=== PATIENT | female | born 1980 | race Caucasian/White ===

== ENCOUNTER → 2016-08-23 | Outpatient (CLI) | payer BC ==
[2016-08-23 14:19] LABS: URINE APPEARANCE CLEAR (CLEAR); URINE BILIRUBIN NEG (NEG); URINE COLOR YELLOW; URINE NITRITE NEG (NEG); URINE PH 6.5 (4.5-7.5); URINE SPECIFIC GRAVITY 1.011 (1.000-1.030); UROBILINOGEN NEG (NEG)
[2016-08-23 14:34] LABS: MANUAL MICROSCOPIC REQUIRED? NO; REVIEW REQ? NO
== END | disposition home or self-care (01) ==
LOC: C.LABSPEC 13:51
PROVIDERS: ATTEND Obstetrics & Gynecology
DX: Z34.01 Encounter for supervision of normal first pregnancy, first trimester (principal)

== ENCOUNTER → 2016-08-29 | Outpatient (CLI) | payer BC ==
[~2016-08-29] MED LIST: CLR10 PO; PRENTAB26 PO
[2016-08-30 22:25] LABS: CHLAMYDIA TRACH RNA*** NOT DETECTED (NOT DETECTED); GC (NEIS GONORRHOEAE)RNA** NOT DETECTED (NOT DETECTED)
== END | disposition home or self-care (01) ==
LOC: C.LABSPEC 11:24
PROVIDERS: ATTEND Obstetrics & Gynecology
DX: Z34.01 Encounter for supervision of normal first pregnancy, first trimester (principal)

== ENCOUNTER → 2016-10-24 | Outpatient (CLI) | payer BC ==
[~2016-10-24] MED LIST changes: +DOCU-94 PO; +ELET20TA PO; +IBUP-103 PO; +OXYC-57 PO
[2016-10-24 19:12] LABS: GTGD 50 Grams
== END | disposition home or self-care (01) ==
LOC: C.LAB1850 14:49
PROVIDERS: ATTEND Obstetrics & Gynecology
DX: Z34.02 Encounter for supervision of normal first pregnancy, second trimester (principal)

== ENCOUNTER → 2017-01-19 | Outpatient (CLI) | payer BC ==
[2017-01-19 14:52] LABS: URINE APPEARANCE CLEAR (CLEAR); URINE BILIRUBIN NEG (NEG); URINE COLOR YELLOW; URINE NITRITE NEG (NEG); URINE SPECIFIC GRAVITY 1.014 (1.000-1.030); UROBILINOGEN NEG (NEG)
[2017-01-19 15:13] LABS: MANUAL MICROSCOPIC REQUIRED? NO; REVIEW REQ? NO
== END | disposition home or self-care (01) ==
LOC: C.LABSPEC 13:49
PROVIDERS: ATTEND Obstetrics & Gynecology
DX: Z34.02 Encounter for supervision of normal first pregnancy, second trimester (principal)

== ENCOUNTER → 2017-03-14 | Outpatient (CLI) | payer BC | END | disposition home or self-care (01) | LOC: C.LABSPEC 15:47 | PROVIDERS: ATTEND Obstetrics & Gynecology | DX: O09.513 Supervision of elderly primigravida, third trimester (principal); Z3A.00 Weeks of gestation of pregnancy not specified ==

== ENCOUNTER 2017-04-12 21:47 | Inpatient (IN) | payer BC ==
[~2017-04-12] VITALS: Ht 162.6 cm; Wt 102.3 kg
[2017-04-12] MEDS ORDERED: NURSING VERBAL MED ORDER ONE (22:45)
[2017-04-12 23:14] LABS: HEMATOCRIT 35.6 % (37-47); MEAN CELL VOLUME 92.5 fL (80-100); MEAN CORPUSCULAR HEMOGLOBIN 31.2 pg (25-34); MEAN CORPUSCULAR HGB CONC 33.7 g/dl (32-36); MEAN PLATELET VOLUME 10.4 fL (7.4-10.4); PLATELET COUNT 311 K/uL (130-400); RED BLOOD COUNT 3.85 M/uL (4.2-5.4); WHITE BLOOD COUNT 12.15 K/uL (4.8-10.8)
[2017-04-12] MEDS ORDERED: PRENTAB26 PO (23:20)
[2017-04-12] MEDS ORDERED: CLR10 PO (23:20)
[2017-04-12 23:24] VITALS: Ht 162.6 cm; Wt 102.3 kg
[2017-04-12] MEDS ORDERED: LACTATED RINGER'S 1000ML 500 ML IV PRN (23:35)
[2017-04-12] MEDS ORDERED: OXYTOCIN 30 UNITS/500ML NSS IV PRN (23:45)
[2017-04-13] MEDS: MISOPROSTOLTAB 50 MCG TAB PO PRN ×2 (00:08→05:19)
[2017-04-13] MEDS: LACTATED RINGER'S 1000ML 1,000 ML IV SCH ×4 (07:26→21:55)
[2017-04-13] MEDS ORDERED: BUPIVACAINE 0.25% 30 ML VIAL ONE (07:48)
[2017-04-13] MEDS ORDERED: EpHEDrine SULFATE INJ 50 MG/ML AMP ONE (07:48)
[2017-04-13] MEDS ORDERED: FENTANYL 2MCG/ML ROPIV 1.25MG/ML 100ML BAG EPI ONE (07:48)
[2017-04-13] MEDS ORDERED: FENTANYL CITRATE INJ 50 MCG/1 ML 2 ML VIAL ONE ×2 (07:49→21:44)
[2017-04-13] MEDS ORDERED: LACTATED RINGER'S 1000ML 500 ML IV PRN ×3 (09:22→23:07)
[2017-04-13] MEDS ORDERED: OXYTOCIN 30 UNITS/500ML NSS IV PRN (09:30)
[2017-04-13] MEDS ORDERED: NALOXONE HCL INJ 1 MG in SODIUM CHLORIDE 0.9% 1000ML 1,000 ML IV PRN ×8 (15:12→23:07)
[2017-04-13] MEDS ORDERED: EpHEDrine SULFATE INJ 50 MG/ML AMP IV PRN ×2 (15:15→23:15)
[2017-04-13] MEDS ORDERED: PROMETHAZINE HCL INJ 25 MG in SODIUM CHLORIDE 0.9% 50ML 50 ML IV PRN ×2 (15:15→23:15)
[2017-04-13] MEDS ORDERED: NALOXONE HCL INJ 0.4 MG/1 ML VIAL/CARP IV PRN (15:15)
[2017-04-13] MEDS ORDERED: ONDANSETRON INJ 2 MG/ML 2 ML VIAL IV PRN ×2 (15:15→23:15)
[2017-04-13] MEDS ORDERED: NALBUPHINE HCL INJ 10 MG/ML AMP IV PRN ×2 (15:15→23:15)
[2017-04-13] MEDS ORDERED: DiphenhydrAMINE HCL 50 MG/ML VIAL IV PRN ×2 (15:15→23:15)
[2017-04-13] MEDS: FENTANYL 2MCG/ML ROPIV 1.25MG/ML 100ML BAG EPI PRN ×2 (15:35→16:44)
[2017-04-13] MEDS ORDERED: LACTATED RINGER'S 1000ML 1,000 ML IV SCH ×2 (21:34→23:13)
[2017-04-13] MEDS ORDERED: CITRIC ACID/SODIUM CITRATE 15 ML UDC ONE (21:37)
[2017-04-13] MEDS ORDERED: LIDOCAINE/EPINEPHRINE 2% 1:200,000 20 ML SDV ONE (21:44)
[2017-04-13] MEDS ORDERED: OXYTOCIN INJ 10 UNITS/ML VIAL ONE ×2 (21:44→22:47)
[2017-04-13] MEDS ORDERED: CITRIC ACID/SODIUM CITRATE 15 ML UDC PO ONE (21:45)
[2017-04-13] MEDS ORDERED: CEFAZOLIN IV 3,000 MG in DEXTROSE 5% 50ML 50 ML IV ONE (22:00)
[2017-04-13] MEDS ORDERED: PHENYLEPHRINE 100MCG/ML 5ML SYR ONE (22:23)
[2017-04-13] MEDS ORDERED: METHYLERGONOVINE MALEATE 0.2 MG/ML AMP ONE (22:24)
[2017-04-13] MEDS ORDERED: MORPHINE SULFATE PF 2MG/2ML SYR ONE (22:41)
[2017-04-13] MEDS ORDERED: ONDANSETRON INJ 2 MG/ML 2 ML VIAL ONE ×2 (22:44)
[2017-04-13] MEDS ORDERED: DEXAMETHASONE SOD INJ 4 MG/ML VIAL ONE (22:45)
[2017-04-13] MEDS ORDERED: SODIUM CHLORIDE 0.9% 1000ML 1,000 ML IV PRN (23:07)
[2017-04-13] MEDS ORDERED: NALOXONE HCL INJ 0.08 MG in SYRINGE 1.8 ML IV PRN (23:07)
[2017-04-13] MEDS ORDERED: OXYTOCIN INJ 20 UNITS in LACTATED RINGER'S 1000ML 1,000 ML IV SCH (23:13)
--- NOTE | 2017-04-13 23:13 | Anesthesia Procedure Note ---
Anesthesia Epidural Removal Nt Date & Time Apr 13, 2017 at 23:12 Notes Mental Status: alert / awake / arousable, participated in evaluation Nausea / Vomiting: adequately controlled Pain: adequately controlled Airway Patency, RR, SpO2: stable & adequate BP & HR: stable & adequate Hydration State: stable & adequate Neuraxial Anesthesia: was administered Anesthetic Complications: no major complications apparent, pt satisfied with anesthetic care Epidural: removed without complications, with tip intact
--- NOTE | 2017-04-13 23:13 | Anesthesiology Progress Note ---
Anesthesia Post Op Note Date & Time Apr 13, 2017 at 23:13 Notes Mental Status: alert / awake / arousable, participated in evaluation Pt Amnestic to Procedure: No Nausea / Vomiting: adequately controlled Pain: adequately controlled Airway Patency, RR, SpO2: stable & adequate BP & HR: stable & adequate Hydration State: stable & adequate Neuraxial Anesthesia: was administered, sensory block is resolving Anesthetic Complications: no major complications apparent
--- NOTE | 2017-04-13 23:13 | [facility] Operative Report ---
Operative Report Operative Date Apr 13, 2017. Pre-Operative Diagnosis 1. 40+wks intrauterine 2. PROM 3. Deep variable decels remote from delivery 4. Thick meconium Post-Operative Diagnosis same Procedure(s) Performed Primary Low Transverse Section Surgeon Shara Camara MD Viticulturist Surgeon(s) RN Estimated Blood Loss 800 Findings Viable female Apgars 1 and 9, weight 9 lbs. 7 oz. Normal uterus tubes and ovaries bilaterally. Fetus in left occiput posterior presentation. No nuchal cord but segment of cord wedged with head in pelvis. Fluids 1000 Specimens Placenta, cord blood, cord gases Drains raphael Anesthesia epidural with duramorph Complication(s) None Disposition Recovery Room / PACU Indications 37-year-old 1 para 0 at 40+ weeks estimated gestational age who presents to labor and delivery with spontaneous rupture of membranes but no labor. She received Cytotec 1 followed by Pitocin induction of labor. She dilated to anterior lip however the anterior lip persisted. This was despite use of Pitocin. An onset of thick meconium was noted and tachycardia in the 170s. Temperature 100.1F. Tends made to reduce up with maternal expulsive efforts however unsuccessful. Additionally deep variable decelerations noted that persisted even without maternal expulsive efforts. The patient was remote from delivery. Recommended that she proceed with section. She agreed a consent form was signed. Description of Procedure The patient was taken to the operating room and identified. She was placed on the operating room table in the supine position with a leftward tilt. Her epidural had been bolused. She was prepped and draped in usual sterile fashion. A Raphael catheter had already been placed under sterile conditions. Her anesthesia level was tested. A knife was used to create a Pfannenstiel skin incision that was carried down to the underlying layer of fascia. The fascia was nicked in the midline and this opening was extended laterally using Jimenez scissors. Ben clamps were placed on the superior and inferior aspects of the fascial incision tenting upwards and the underlying rectus muscles were dissected off of the overlying fascia both sharply and bluntly using Jimenez scissors. The rectus muscles were bluntly in the midline. The peritoneal cavity was bluntly entered into. This opening was stretched as well as extended using the Bovie cautery. Bladder blade was placed. The knife was used to create a hysterotomy that was then stretched. Thick meconium was noted. The operators hand was placed through the hysterotomy and the head was elevated out of the pelvis flexed and the bladder blade was removed. With fundal pressure the cephalic was delivered. A knuckle of umbilical cord was lying right beside the shoulder girdle. The shoulders and body were delivered with further fundal pressure. The mouth and nose were bulb suctioned and the cord was clamped and cut. The infant was handed off to the waiting machine clothing man. Cord blood and cord gases were obtained. The placenta was manually expressed. Dilute IV Pitocin was begun. The uterus was exteriorized and cleared of all clots and debris. Uterine tone was poor and therefore 0.2 mg of Methergine was injected in the lower uterus. The left aspect of the hysterotomy had an extension towards the cervix. It was grasped with an Allis clamp and a series of running interlocking sutures were placed which then continued along the hysterotomy. A second imbricating layer of 0 Vicryl was placed. Additional sutures at the left corner of the hysterotomy were necessary to secure bleeding. Hemostasis was adequate. Uterine tone had improved.The pelvis was irrigated. The uterus was returned to the abdomen. The gutters were cleared of all clots and debris. The hysterotomy was reinspected and noted to be hemostatic. The fascia was then closed in a running fashion using 0 Vicryl. The subcutaneous fat was copiously irrigated. It was reapproximated using 2-0 chromic. The skin was then closed in a subcuticular fashion using 4-0 Vicryl. All sponge lap and needle counts were correct 2. The patient was returned to the recovery room in stable condition. I attest to the content of the Intraoperative Record and any orders documented therein. Any exceptions are noted below.
[2017-04-13] MEDS ORDERED: DIPHTHERIA/TETANUS/PERTUSSIS 0.5 ML SYR/VIAL IM. ONE (23:15)
[2017-04-13] MEDS ORDERED: SUPERCREAM 0.870 % 15GM JAR EXT PRN (23:15)
[2017-04-13] MEDS ORDERED: MoRPHine SULFATE PF 1 MG/ML 10 ML AMP/VIAL EPI PRN (23:15)
[2017-04-13] MEDS ORDERED: KETOROLAC TROMETHAMINE 30 MG/ML VIAL IV. PRN (23:15)
[2017-04-13] MEDS ORDERED: LANOLIN OINT EXT PRN ×2 (23:15)
[2017-04-13] MEDS ORDERED: DC INTRASPINAL MORPHINE SCH (23:15)
[2017-04-13] MEDS ORDERED: NALOXONE HCL 0.4 MG/1 ML VIAL/CARP IV PRN (23:15)
[2017-04-13] MEDS ORDERED: NO NARCOTICS OR SEDATIVES SCH (23:15)
[2017-04-13] MEDS ORDERED: HYDROCORTISONE ACETATE 25 MG SUPP PR PRN (23:15)
[2017-04-13] MEDS ORDERED: BENZOCAINE 20% AER SPR 82.5 GM CAN EXT PRN (23:15)
[2017-04-13] MEDS ORDERED: METHYLERGONOVINE MALEATE 0.2 MG/ML AMP IM SCH (23:30)
[2017-04-14] VITALS (21 sets, daily range): BP systolic 100–137; BP diastolic 62–87; PULSE 57–97; TEMP 36.6–37.3; O2SAT 95–98
[2017-04-14] MEDS ORDERED: ONDANSETRON INJ 2 MG/ML 2 ML VIAL ONE (00:40)
[2017-04-14] MEDS ORDERED: KETOROLAC TROMETHAMINE 30 MG/ML VIAL ONE (00:43)
--- NOTE | 2017-04-14 06:37 | Progress Note ---
Subjective Apr 14, 2017. Subjective conversation w/ patient, physical exam Ambulation: limited ambulation (in bed, with duramorph orders) Voiding: raphael catheter in place Passing Gas: No Diet Tolerance: Clear Liquids Lochia: Moderate Feeding Type: Breast Feeding Pain: well controlled. Objective Vital Signs Date Time Temp Pulse Resp B/P (MAP) Pulse Ox O2 Delivery O2 Flow Rate FiO2 04/14/17 05:00 37.0 73 18 127/78 (94) 96 Room Air 04/14/17 04:30 18 95 04/14/17 03:30 18 95 04/14/17 02:30 18 97 04/14/17 02:30 36.9 71 18 127/85 (99) 97 Room Air 04/14/17 01:30 37.3 91 18 137/87 (104) 96 Room Air 04/14/17 01:30 18 96 04/14/17 01:30 96 Room Air Physical Exam General Appearance: WELL-APPEARING, WD/WN, NO APPARENT DISTRESS Respiratory/Chest: lungs clear Cardiovascular: regular rate, rhythm Abdomen: soft Fundus: Firm, Tender (appropriately), Relation to Umbilicus (2 down) Incision Description: Clean, Dry & Intact (dressing in place) Extremities: non-tender Laboratory Results Last 24 Hours Test 04/14/17 05:59 Assessment and Plan Post-Op Day#: 1 Continue Routine Care: routine post op care. will have raphael d/c in evening. ambulate thereafter. adv diet as tolerated. cbc pending.
[2017-04-14 06:45] LABS: HEMATOCRIT 31.7 % (37-47); MEAN CELL VOLUME 91.9 fL (80-100); MEAN CORPUSCULAR HEMOGLOBIN 31.6 pg (25-34); MEAN CORPUSCULAR HGB CONC 34.4 g/dl (32-36); MEAN PLATELET VOLUME 10.3 fL (7.4-10.4); PLATELET COUNT 258 K/uL (130-400); RED BLOOD COUNT 3.45 M/uL (4.2-5.4); WHITE BLOOD COUNT 25.34 K/uL (4.8-10.8)
[2017-04-14 07:10] LABS: BASO % 0.1 %; BASO ABS # 0.02 K/uL (0-0.2); COMPLETE YES; IG% 0.5 %; LYMPH % 7.4 %; LYMPH ABS # 1.87 K/uL (1.2-3.4)
[2017-04-14] MEDS: LORATADINE 10 MG TAB PO SCH (08:50)
[2017-04-14] MEDS: SIMETHICONE 80 MG CHEW PO SCH ×4 (08:50→19:32)
[2017-04-14] MEDS: DOCUSATE SODIUM 100 MG CAP PO SCH ×2 (08:50→19:31)
[2017-04-14] MEDS ORDERED: OXYCODONE/ACETAMINOPHEN 5-325 TAB PO PRN (17:45)
[2017-04-14] MEDS ORDERED: ONDANSETRON INJ 2 MG/ML 2 ML VIAL IV PRN (17:45)
[2017-04-14] MEDS ORDERED: KETOROLAC TROMETHAMINE 30 MG/ML VIAL IV. PRN (17:45)
[2017-04-14] MEDS ORDERED: ZOLPIDEM TARTRATE 5 MG TAB PO PRN (17:45)
[2017-04-14] MEDS ORDERED: DiphenhydrAMINE HCL 50 MG/ML VIAL IV PRN (17:45)
[2017-04-14] MEDS: OXYCODONE/ACETAMINOPHEN 5-325 TAB PO PRN (19:31)
[2017-04-14] MEDS: IBUPROFEN 600 MG TAB PO PRN (19:31)
[2017-04-15] VITALS: BP 102/70; PULSE 82; TEMP 36.8; O2SAT 95
[2017-04-15] MEDS: IBUPROFEN 600 MG TAB PO PRN ×6 (00:04→22:51)
[2017-04-15] MEDS: OXYCODONE/ACETAMINOPHEN 5-325 TAB PO PRN ×6 (00:05→22:52)
--- NOTE | 2017-04-15 06:35 | Progress Note ---
Subjective Apr 15, 2017. Subjective conversation w/ patient, physical exam, chart review, lab review Ambulation: limited ambulation (to bathroom thus far) Voiding: no voiding problems Passing Gas: Yes Diet Tolerance: Regular Diet Lochia: Small Feeding Type: Breast Feeding Pain: Says pain controlled with PO meds Comment: Found pt resting comfortably, denies any acute concerns. Review of Systems Constitutional: No fever, No chills Respiratory: No cough, No shortness of breath Cardiac: + edema, No chest pain Abdomen: No nausea, No vomiting, No diarrhea Female : No dysuria Objective Vital Signs Date Time Temp Pulse Resp B/P (MAP) Pulse Ox O2 Delivery O2 Flow Rate FiO2 04/15/17 00:00 95 Room Air 04/15/17 00:00 36.8 82 18 102/70 (81) 95 Room Air 04/14/17 19:30 36.8 97 20 107/74 (85) Room Air 04/14/17 17:30 16 97 04/14/17 16:30 18 96 04/14/17 15:30 16 96 04/14/17 15:20 98 Room Air 04/14/17 15:20 36.7 84 16 101/62 (75) 98 Room Air 04/14/17 14:30 18 96 04/14/17 13:30 18 96 04/14/17 12:30 16 97 04/14/17 11:50 36.8 88 16 100/65 (77) 97 Room Air 04/14/17 11:30 16 97 04/14/17 10:30 16 95 04/14/17 09:30 16 95 04/14/17 08:30 16 95 04/14/17 07:25 36.6 57 16 129/78 (95) 95 Room Air 04/14/17 07:25 16 95 04/14/17 07:25 95 Room Air Physical Exam General Appearance: WELL-APPEARING, WD/WN, NO APPARENT DISTRESS Respiratory/Chest: lungs clear, normal breath sounds, no respiratory distress Cardiovascular: regular rate, rhythm, no murmur Abdomen: normal bowel sounds, non tender, soft Fundus: Firm, Non-Tender, Relation to Umbilicus (approx two down) Incision Description: Clean, Dry & Intact (open to air, no d/c or surrounding erythema) Extremities: normal range of motion, no calf tenderness, + pedal edema (1+ bilaterally) Laboratory Results Last 24 Hours Test 04/15/17 06:19 Assessment and Plan Post-, Post-Op Day#: 2 Continue Routine Care: Resident Physician Supervision Note: I was present with Dr. Curry during the history and exam. I discussed the case with the resident and agree with the findings and plan as documented in the note. Any exceptions or clarifications are listed here: [None] Documented By: Jessica Hung Kristin 37F s/p for deep variable decels, now PPD #2. - Blood type A positive. GBS negative. Rubella immune. - Vital signs reviewed and stable. - Pain controlled with motrin and percocet. - Mild bilateral leg swelling without tenderness on calf palpation. Encourage ambulation. - Encourage breast feeding. - Hemoglobin pre-delivery 12.0, post-delivery 10.9. Bleeding has improved. Continue to monitor clinically. - Continue routine post delivery care. - Pt agreed with above plan, all current questions answered. Aman Curry MD, PGY1 Event Marketing Specialist Tracking Resident Involvement: Resident Care Provided Care Provided: OB Delivery (OB rounds)
[2017-04-15 06:39] LABS: HEMATOCRIT 27.6 % (37-47)
[2017-04-15 07:35] VITALS: BP 108/71; PULSE 77; TEMP 36; O2SAT 97
[2017-04-15] MEDS: LORATADINE 10 MG TAB PO SCH (07:44)
[2017-04-15] MEDS: DOCUSATE SODIUM 100 MG CAP PO SCH ×2 (07:44→21:32)
[2017-04-15] MEDS: SIMETHICONE 80 MG CHEW PO SCH ×4 (07:45→21:32)
[2017-04-15 16:20] VITALS: BP 103/67; TEMP 36.7; O2SAT 99
[2017-04-15 23:00] VITALS: BP 118/78; PULSE 87; TEMP 36.6; O2SAT 99
[2017-04-16] MEDS: IBUPROFEN 600 MG TAB PO PRN ×2 (04:09→09:05)
[2017-04-16] MEDS: OXYCODONE/ACETAMINOPHEN 5-325 TAB PO PRN (04:09)
[2017-04-16] MEDS ORDERED: OXYC-57 PO (08:33)
[2017-04-16 08:35] VITALS: BP 126/82; PULSE 80; TEMP 37
[2017-04-16] MEDS: LORATADINE 10 MG TAB PO SCH (09:04)
[2017-04-16] MEDS: SIMETHICONE 80 MG CHEW PO SCH (09:05)
[2017-04-16] MEDS: DOCUSATE SODIUM 100 MG CAP PO SCH (09:05)
--- NOTE | 2017-04-16 09:40 | Progress Note ---
Subjective Apr 16, 2017. Subjective conversation w/ patient, physical exam Ambulation: ambulating normally Voiding: no voiding problems Passing Gas: Yes Diet Tolerance: Regular Diet Lochia: Moderate Feeding Type: Breast Feeding Review of Systems Constitutional: No problem reported Respiratory: No problem reported Cardiac: No problem reported Breast: No problem reported Abdomen: No problem reported Female : No problem reported Objective Vital Signs Date Time Temp Pulse Resp B/P (MAP) Pulse Ox O2 Delivery O2 Flow Rate FiO2 04/15/17 23:00 99 Room Air 04/15/17 23:00 36.6 87 19 118/78 (91) Room Air 04/15/17 16:45 Room Air 04/15/17 16:20 36.7 18 103/67 (79) 99 Room Air Physical Exam General Appearance: WELL-APPEARING, NO APPARENT DISTRESS Respiratory/Chest: no respiratory distress Cardiovascular: regular rate, rhythm Abdomen: non tender, soft Fundus: Firm Incision Description: Clean, Dry & Intact Extremities: normal inspection Assessment and Plan Post-Op Day#: 3 Continue Routine Care: POD#3 s/p csection. Doing well. Discharge to home. Discharge instructions discussed.
--- NOTE | 2017-04-16 09:41 | Discharge Instructions ---
Discharge Instructions Date of Service Apr 16, 2017. Admission Reason for Admission: Check Rupture Discharge Discharge Diagnosis / Problem: s/p Discharge Goals Goal(s): Routine recovery after Activity Recommendations Activity Limitations: per Instructions/Follow-up section . Instructions / Follow-Up Instructions / Follow-Up ACTIVITY RECOMMENDATIONS: * Gradual return to full activity over the next 2-3 weeks. * No lifting - nothing heavier than baby over the next 2-3 weeks. * Do not engage in vigorous exercise, sexual activity or sports until cleared by your physician. * Do not drive or operate any motorized equipment until cleared by your physician. * You may shower/bathe daily. MEDICATIONS: For discomfort or pain, you may use Acetaminophen (Tylenol), Ibuprofen (Advil), or Naproxen (Aleve) following the package directions. For constipation you may use Colace following the package directions. BREAST CARE: If you are not breast feeding: * Wear a supportive bra 24 hours a day for one to two weeks. * Avoid stimulating your breasts and nipples as much as possible during the first few weeks after delivery. * When taking a shower, have the warm water hit your back, not breasts. * When your breasts feel full, apply ice packs. Usually three to four times a day helps ease the discomfort. * Take a mild pain medication (Tylenol / Motrin) when you are uncomfortable. If breast feeding: * Use breast milk to lubricate nipples. Lansinoh cream may be used for sore nipples. You do not need to remove cream prior to breast feeding. If using a different brand of cream, check the label for directions regarding removal of cream prior to nursing. * Wear a supportive bra. * If having problems with breasts or breast feeding, call a cruise consultant or your health care provider. EPISIOTOMY CARE: After delivery, if you have an episiotomy (stitches), the following steps will ease discomfort and aid healing. * For the first 24 hours after delivery, place ice packs next to your episiotomy to help reduce swelling. * After the first 24 hour-period, sitz baths, either portable or in the tub, are suggested. A shower with a shower arm sprayed over the episiotomy may be comforting. * Renetta care should be done after each voiding and bowel movement. Squirt warm water from a plastic bottle over the perineum (region of the body between the anus and urinary opening) and pat dry. * Use Dermoplast to ease discomfort. Shake container. Burgess directly over the episiotomy. Place a Tucks on a clean sanitary pad next to your episiotomy. SPECIAL CARE INSTRUCTIONS: When you are discharged from the hospital, it is important for you to follow the instructions listed below: * During the first week at home, you should be able to care for yourself and your baby. In addition, the usual light household activities are encouraged. * Limit your activities to the way you feel. Do not try to clean the house or move furniture. Be sensible. * If you actively engage in sports and have done so up until the time of your delivery, you may resume these activities as soon as you feel able. This may take up to one month or even longer. Use good judgment. * Continue to take your vitamins for at least six weeks after the of your baby. * Your diet need not be limited unless you were on a special diet before your delivery. Breast-feeding mothers need around 2500 calories per day and at least 64-80 ounces of fluid per day (8 to 10 glasses). * You should eat foods from the four major food groups. Crash diets or fad diets are to be avoided. Eating lean meats, fresh fruits and vegetables, low-fat dairy products, high fiber foods and a regular exercise program, will help you get back to your pre- weight without putting your health at risk. * Constipation is sometimes a problem after delivery. Take a mild laxative as needed. If breast feeding, Milk of Magnesia is acceptable to use. You may use a suppository or Fleets enema if no episiotomy. * A daily shower or tub bath is suggested. Be sure to thoroughly and gently dry the perineum. * A bloody vaginal discharge will usually continue until around four weeks post . A small amount of bleeding may continue for as long as six weeks. Vaginal discharge changes from the bright red bleeding after delivery to pink then brownish and finally yellowish-pink before becoming white and disappearing. * Bleeding may increase with activity. Your first period may come in 4-8 weeks. If you are breast feeding, your period may be delayed even longer. * [place] (sex) can begin whenever both you and your partner feel comfortable and do not have any form of genital infection. It is recommended that you wait at least six weeks for internal and external healing to occur. If you have questions, please talk to your health care practitioner. A condom should be used to prevent infection and . * Foreplay, gentle intercourse and lubrication is very important the first several times to prevent pain. A water-based lubricant such as K-Y jelly or Astroglide may be used. * If you have RH negative blood and your baby is RH positive, you will receive RHOGAM by injection prior to discharge. The nurse will give you a card to keep with you that has the date and place that you received RHOGAM after delivery. * During your care, you had a Rubella screen done to check for the presence of rubella antibodies in your blood. If your test was negative, you will receive a Rubella vaccine prior to discharge. This vaccine may cause a fever, soreness at the injection site and flu-like symptoms. If these symptoms persist, notify your health care practitioner. is not advised for one month after a Rubella vaccine. * Verbalizes understanding of car seat law as reviewed with patient nursing. * Car Seat hand-out given and reviewed with patient by nursing. * Shaken baby information reviewed with patient by nursing. Call you doctor if: * Heavy bleeding (saturating several pads an hour) or passing clots the size of your fist. * A fever >101 degrees F (38.3 degrees C) on two occasions four hours apart and /or chills. * Unusual pain in the pelvic or vaginal areas. * "Baby Blues" lasting longer than two weeks. If you have any questions or concerns, call your health care practitioner at . FOLLOW UP VISIT: * Please call the office at to schedule a 6 week examination. It is important you keep this appointment. It is important for you to make arrangements for either yearly or twice yearly check-ups thereafter. Current Hospital Diet Patient's current hospital diet: Regular OB Diet Discharge Diet Recommended Diet: Regular OB Diet Procedures Procedures Performed: Primary Section Pending Studies Studies pending at discharge: no Medical Emergencies . Who to Call and When: Medical Emergencies: If at any time you feel your situation is an emergency, please call 911 immediately. . Non-Emergent Contact Non-Emergency issues call your: Primary Care Provider, Gluten Settling Tender . . "Provider Documentation" section prepared by Deja Akers. . VTE Core Measure Inpt VTE Proph given/why not?: SCD's
--- NOTE | 2017-04-16 09:43 | Progress Note ---
Progress Note Date of Service Apr 16, 2017. Progress Note [place]MP reviewed.
[2017-04-16 13:40] VITALS: BP_DIAS 82; PULSE 80; TEMP 37
== END 2017-04-16 13:40 | disposition home or self-care (01) | DRG 766 ==
LOC: C.OPB 21:47 → C.LD 21:47 → C.OPB 22:38 → C.OBG 04-14 01:26
PROVIDERS: ADMIT Obstetrics & Gynecology; ATTEND Obstetrics & Gynecology
PROC: 3E033VJ Introduction of Other Hormone into Peripheral Vein, Percutaneous Approach (ICD-10-PCS; principal; 2017-04-13 22:03)
PROC: 3E0P7GC Introduction of Other Therapeutic Substance into Female Reproductive, Via Natural or Artificial Opening (ICD-10-PCS; principal; 2017-04-13 22:03)
PROC: 10D00Z1 Extraction of Products of Conception, Low, Open Approach (ICD-10-PCS; principal; 2017-04-13 22:03)
DX: O48.0 Post-term pregnancy (principal); O42.02 Full-term premature rupture of membranes, onset of labor within 24 hours of rupture; O76 Abnormality in fetal heart rate and rhythm complicating labor and delivery; O77.0 Labor and delivery complicated by meconium in amniotic fluid; O65.5 Obstructed labor due to abnormality of maternal pelvic organs; O99.02 Anemia complicating childbirth; D64.9 Anemia, unspecified; O99.62 Diseases of the digestive system complicating childbirth; K21.9 Gastro-esophageal reflux disease without esophagitis; O99.214 Obesity complicating childbirth; E66.9 Obesity, unspecified; Z68.38 Body mass index [BMI] 38.0-38.9, adult; Z37.0 Single live birth; Z3A.40 40 weeks gestation of pregnancy; Z79.899 Other long term (current) drug therapy

== ENCOUNTER 2017-04-21 19:07 | Emergency (ER) | payer BC ==
[~2017-04-21] VITALS: Ht 162.6 cm; Wt 92.1 kg
[~2017-04-21 19:07] MED LIST changes: -CLR10 PO; -DOCU-94 PO; -ELET20TA PO; -IBUP-103 PO; -PRENTAB26 PO
[2017-04-21 19:28] VITALS: TEMP 37; Ht 162.6 cm; Wt 92.1 kg
[2017-04-21] MEDS ORDERED: DiphenhydrAMINE HCL 50 MG/ML VIAL IV STA (20:49)
[2017-04-21] MEDS ORDERED: SODIUM CHLORIDE 0.9% 1000ML 1,000 ML IV STA (20:49)
[2017-04-21] MEDS ORDERED: PROCHLORPERAZINE 5 MG/ML 2 ML VIAL IV STA (20:49)
[2017-04-21] MEDS ORDERED: KETOROLAC TROMETHAMINE 30 MG/ML VIAL IV STA (20:49)
--- NOTE | 2017-04-21 20:50 | EMERGENCY ROOM VISIT NOTE ---
History Report prepared by Alice: Irma Cheng Under the Supervision of: Dr. Manjit Darden M.D. First contact with patient: 20:14 Chief Complaint: HEADACHE Stated Complaint: HEADACHE LASTING 6 DAYS AFTER CHILDBIRTH History of Present Illness The patient is a 37 year old female who presents to the Emergency Room with complaints of a persistent headache for the past 6 days. She rates her pain as a 6/10 in severity and states the majority of the headache is located in the frontal region of her head. The pain goes from feeling "dull to more severe". She admits to a history of migraine headaches and states her current headache does feel similar to a migraine. Standing up provides some relief for her discomfort. Exposure to light worsens her pain. The patient notes she delivered a baby on Monday, 6 days ago, here at [facility]. She has experienced the headache ever since she left the hospital. She delivered her daughter via section and was given an epidural. She admits to "waviness" in her vision a few days ago, but states it has resolved. The patient was placed on Motrin and Percocet for her post-surgical pain, but states they have provided no relief for her headache. She states she stopped taking the Percocet yesterday as she was afraid she was developing a rebound headache. This evening at dinner, the patient became nauseous and was unable to finish her dinner. She is currently and notes her sleep schedule has been very irregular with caring for a . The patient denies any recent fevers, abdominal pain or diarrhea. She also denies any recent falls or injuries to her head. 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 A total of 10 systems reviewed and were otherwise negative. Past Medical & Surgical Medical Problems: (1) Migraine (2) Seasonal allergies Surgical Problems: (1) History of section Social History Smoking Status: Never Smoker Alcohol Use: occasionally Drug Use: none Marital Status: Housing Status: lives with family Occupation Status: unemployed Current/Historical Medications Scheduled Docusate Sodium (Colace), 100 MG PO DAILY Multivit/Min/Iron/Fol Ac/Pren ( Vitamin), 1 TAB PO DAILY Scheduled PRN Eletriptan (Relpax), 20 MG PO UD PRN for Migraine Ibuprofen Tab (Advil), 600 MG PO Q6H PRN for Headache or Pain Loratadine (Claritin), 10 MG PO DAILY PRN for Allergy Symptoms Oxycodone/Acetaminophen 5MG/325MG (Percocet 5MG/325MG), 1-2 TABLETS PO Q4H PRN for Pain Allergies Coded Allergies: No Known Allergies (Unverified , 04/12/17) Physical Exam Vital Signs Date Time Temp Pulse Resp B/P (MAP) Pulse Ox O2 Delivery O2 Flow Rate FiO2 04/21/17 22:03 61 17 151/87 97 Room Air 04/21/17 21:19 66 17 150/102 98 Room Air 04/21/17 19:28 37.0 77 18 146/111 98 Room Air Physical Exam GENERAL: Patient is in no acute distress. Patient's headache does not improve with laying flat. HEENT: No acute trauma, normocephalic atraumatic, mucous membranes moist, no nasal congestion, no scleral icterus. Pupils equal and reactive to light. NECK: No stridor, no adenopathy, no meningismus, trachea is midline. LUNGS: Clear to auscultation bilaterally, no wheeze, no rhonchi, breath sounds equal. HEART: Without murmurs gallops or rubs, regular rate and rhythm. ABDOMEN: Soft, mildly tender over the incision--no infection noted, bowel sounds positive, no hernias, no peritonitis. EXTREMITIES: No cyanosis or edema, full range of motion of all the joints without pain or difficulty, no signs for acute trauma. NEUROLOGIC: Oriented x 3, no acute motor or sensory deficits, no focal weakness. No cerebellar deficits. SKIN: No rash, no jaundice, no diaphoresis Medical Decision & Procedures Medications Administered Medications (Trade) Dose Ordered Sig/Keena Route Start Time Stop Time Status Last Admin Dose Admin Sodium Chloride 1,000 ml @ 999 mls/hr Q1H1M STAT IV 04/21/17 20:49 04/21/17 21:49 DC 04/21/17 21:14 999 MLS/HR Ketorolac Tromethamine (Toradol Inj) 30 mg NOW STAT IV 04/21/17 20:49 04/21/17 20:51 DC 04/21/17 21:13 30 MG Prochlorperazine Edisylate (Compazine Inj) 10 mg NOW STAT IV 04/21/17 20:49 04/21/17 20:51 DC 04/21/17 21:14 10 MG Diphenhydramine HCl (Benadryl Inj) 25 mg NOW STAT IV 04/21/17 20:49 04/21/17 20:51 DC 04/21/17 21:15 25 MG Dexamethasone Sodium Phosphate (Decadron Inj) 10 mg NOW ONCE IV 04/21/17 21:00 04/21/17 21:01 DC 04/21/17 21:15 10 MG Morphine Sulfate (MoRPHine SULFATE INJ) 4 mg NOW STAT IV 04/21/17 21:56 04/21/17 21:57 DC 04/21/17 22:02 4 MG ED Course 2040: The patient was evaluated in room C9. A complete history and physical exam was performed. 2048: Benadryl 25 mg IV, Compazine 10 mg IV, Toradol 30 mg IV, NSS 1000 ml @ 999 mls/hr IV. 2099: Decadron 10 mg IV. 2149: I reevaluated the patient. Her headache has improved. I discussed her discharge instructions and she verbalized complete understanding and agreement. 2155: Morphine Sulfate 4 mg IV. Medical Decision The differential diagnoses considered include migraine headache, dehydration, stress, intracranial bleeding, meningitis and spinal headache. The patient presents with a headache that she feels is migrainous. She has not suffered head trauma. There is no meningismus, she is not toxic or febrile. She has a normal neurologic evaluation. Her headache does not worsen with standing and she does not describe a classic spinal headache. Patient received IV Compazine, IV Benadryl, IV Toradol and IV Decadron. She was eventually given a small dose of IV morphine. She feels improved. She does feel comfortable with discharge home. She will rest tonight and return if worsening. She was advised to pump and discard her breast milk for the next 2 days. Her headache is very likely migrainous. Medication Reconcilliation Current Medication List: was personally reviewed by me Blood Pressure Screening Patient's blood pressure: Elevated blood pressure Blood pressure disposition: Elevated BP felt to be situational Impression Primary Impression: Headache Scribe Attestation The scribe's documentation has been prepared under my direction and personally reviewed by me in its entirety. I confirm that the note above accurately reflects all work, treatment, procedures, and medical decision making performed by me. Departure Information Dispostion Home / Self-Care Referrals Dedrick Barnard MD (PCP) Patient Instructions My [facility] Additional Instructions fluids rest sleep return if worsening may take tylenol and motrin together at home for return of headache
[2017-04-21] MEDS ORDERED: DEXAMETHASONE SOD INJ 10 MG/ML VIAL IV ONE (21:00)
--- NOTE | 2017-04-21 21:04 | EMERGENCY ROOM VISIT NOTE ---
History First contact with patient: 20:33 Chief Complaint: HEADACHE Stated Complaint: HEADACHE LASTING 6 DAYS AFTER CHILDBIRTH History of Present Illness The patient is a 37 year old female who presents to the Emergency Room with complaints of MARROQUIN since Monday. -Pt says that the headache is a persistent frontal unilateral MARROQUIN that goes from dull to sharp. Pt described one episode of aura described as wavy lines in visual field. -Pt has a PMHx of migraines and says that this episode of headaches feels like past migraines. -Pt headache was briefly aborted by Relpax. Pt has also been taking Motrin without relief. -Pt is 6 days post-. Normal healthy . Pt had SROM and a C- section. -Pt received epidural. Pt was sent home with Percocet, which patient says has not helped her MARROQUIN. -Pt denies neuro deficits; no visual changes, loss of balance or loss sensation in extremities. -Pt has been nauseous, but denies vomiting or fever -Pt denies injury to the head. Review of Systems see below Constitutional: No fever, No chills, No sweats Eyes: No worsening of vision, No diplopia Respiratory: No cough, No sputum, No shortness of breath Cardiovascular: + edema (pedal edema since ), No chest pain, No palpitations Abdomen: + nausea, No pain, No vomiting, No diarrhea Neurologic: No memory loss, No weakness, No numbness/tingling, No balance problems Past Medical/Surgical History Medical Problems: (1) Migraine (2) Seasonal allergies Surgical Problems: (1) History of section Social History Smoking Status: Never Smoker Alcohol Use: occasionally Drug Use: none Marital Status: Housing Status: lives with family Occupation Status: unemployed Current/Historical Medications Scheduled Docusate Sodium (Colace), 100 MG PO DAILY Multivit/Min/Iron/Fol Ac/Pren ( Vitamin), 1 TAB PO DAILY Scheduled PRN Eletriptan (Relpax), 20 MG PO UD PRN for Migraine Ibuprofen Tab (Advil), 600 MG PO Q6H PRN for Headache or Pain Loratadine (Claritin), 10 MG PO DAILY PRN for Allergy Symptoms Oxycodone/Acetaminophen 5MG/325MG (Percocet 5MG/325MG), 1-2 TABLETS PO Q4H PRN for Pain Physical Exam Vital Signs Date Time Temp Pulse Resp B/P (MAP) Pulse Ox O2 Delivery O2 Flow Rate FiO2 04/21/17 22:03 61 17 151/87 97 Room Air 04/21/17 21:19 66 17 150/102 98 Room Air 04/21/17 19:28 37.0 77 18 146/111 98 Room Air Physical Exam see below General Appearance: WD/WN, no apparent distress Head: normocephalic, atraumatic Respiratory/Chest: chest non-tender, lungs clear, normal breath sounds, no respiratory distress, no accessory muscle use Cardiovascular: regular rate, rhythm, no edema, no gallop, no JVD, no murmur Neurologic/Psych: tar heater II-XII nml as tested, no motor/sensory deficits, alert , normal mood/affect, normal reflexes, oriented x 3 Medical Decision & Procedures Medications Administered Medications (Trade) Dose Ordered Sig/Keena Route Start Time Stop Time Status Last Admin Dose Admin Sodium Chloride 1,000 ml @ 999 mls/hr Q1H1M STAT IV 04/21/17 20:49 04/21/17 21:49 DC 04/21/17 21:14 999 MLS/HR Ketorolac Tromethamine (Toradol Inj) 30 mg NOW STAT IV 04/21/17 20:49 04/21/17 20:51 DC 04/21/17 21:13 30 MG Prochlorperazine Edisylate (Compazine Inj) 10 mg NOW STAT IV 04/21/17 20:49 04/21/17 20:51 DC 04/21/17 21:14 10 MG Diphenhydramine HCl (Benadryl Inj) 25 mg NOW STAT IV 04/21/17 20:49 04/21/17 20:51 DC 04/21/17 21:15 25 MG Dexamethasone Sodium Phosphate (Decadron Inj) 10 mg NOW ONCE IV 04/21/17 21:00 04/21/17 21:01 DC 04/21/17 21:15 10 MG Morphine Sulfate (MoRPHine SULFATE INJ) 4 mg NOW STAT IV 04/21/17 21:56 04/21/17 21:57 DC 04/21/17 22:02 4 MG ED Course 20:30 History and physical exam performed 21:00 Meds ordered: IVF, Decadron, Benadryl, Toradol, Compazine 21:45 Reaccessed pt. Pain 4/10 down from 01/16. Meds order; Morphine Medical Decision 37 year old female presents to the ED with 6 days of MARROQUIN. -Differential include; migraine headache, post-lumbar puncture headache, tension headache, cluster headache, SAH, hypertensive urgency -Pt headache does not seem to be better or worse by position. Pain was not improved in the supine position--->making spinal headache less likely -Pt BP is mildly elevated, less likely contributing to her headache. -Based on pt's PMHx, pt is likely having a migraine headache. Impression Primary Impression: Migraine Departure Information Dispostion Home / Self-Care Condition GOOD Referrals No Doctor, Assigned (PCP) [facility]
[2017-04-21] MEDS ORDERED: DOCU-94 PO (21:11)
[2017-04-21] MEDS ORDERED: ELET20TA PO (21:11)
[2017-04-21] MEDS ORDERED: IBUP-103 PO (21:11)
[2017-04-21] MEDS ORDERED: OXYC-57 PO (21:13)
[2017-04-21] MEDS ORDERED: MoRPHine SULFATE 4 MG/ML 1 ML CARP\\VIAL IV STA (21:56)
[2017-04-21 22:03] VITALS: BP 151/87; PULSE 61; O2SAT 97
[2017-04-21] MEDS ORDERED: PRENTAB26 PO (23:20)
[2017-04-21] MEDS ORDERED: CLR10 PO (23:20)
== END 2017-04-21 22:25 | disposition home or self-care (01) ==
LOC: C.EDB 19:08 → C.EDC 22:25
DX: G43.909 Migraine, unspecified, not intractable, without status migrainosus (principal)

== ENCOUNTER → 2017-05-15 | Outpatient (CLI) | payer BC ==
[~2017-05-15] MED LIST changes: +CLR10 PO; +DOCU-94 PO; +ELET20TA PO; +IBUP-103 PO; +PRENTAB26 PO
== END | disposition home or self-care (01) ==
LOC: C.PAPS 10:13
PROVIDERS: ATTEND Obstetrics & Gynecology
DX: Z01.419 Encounter for gynecological examination (general) (routine) without abnormal findings (principal)

== ENCOUNTER → 2017-07-07 | Outpatient (CLI) | payer BC | END | disposition home or self-care (01) | LOC: C.LAB 12:53 | PROVIDERS: ATTEND Physician Assistant | DX: Z30.9 Encounter for contraceptive management, unspecified (principal) ==